=== PATIENT | female | born 1980 | race Caucasian/White ===

== ENCOUNTER 2017-07-27 12:00 | Outpatient (CLI) | payer BC, MEDICAID ==
[~2017-07-27 12:00] MED LIST: HYDR12.522 PO; LORA10CA PO; POTA10TA15 PO; PROP10TA10 PO; [UNRECOGNIZED DRUG - OTHER] PO
== END 2017-07-27 23:59 | disposition home or self-care (01) ==
LOC: RAD 12:00
PROVIDERS: ATTEND Family Medicine
DX: N28.1 Cyst of kidney, acquired (principal); K76.9 Liver disease, unspecified
CPT/HCPCS: 76700